=== PATIENT | male | born 1980 | race Caucasian/White ===

== ENCOUNTER 2019-07-18 22:42 | Emergency (ER) | payer SELFPAY ==
[~2019-07-18] VITALS: Ht 167.6 cm; Wt 77.0 kg
[2019-07-18] MEDS ORDERED: SODIUM CHLORIDE 0.9% 1,000 ML IV ONE (23:44)
[2019-07-18] MEDS ORDERED: LORAZEPAM 2MG/ML CPJ IV STA (23:44)
[2019-07-18 23:55] LABS: BASOPHILS % 0.5 % (0.0-2.0); EOSINOPHILS % 0.2 % (0.0-5.0); HEMATOCRIT. 44.4 % (42.0-52.0); HEMOGLOBIN. 15.3 g/dL (14.0-18.0); LYMPHOCYTES % 14.4 % (20.0-50.0); MEAN CORPUSCULAR HEMOGLOBIN 29.2 pg (28.0-32.0); MEAN CORPUSCULAR VOLUME 84.7 fL (80.0-94.0); MEAN PLATELET VOLUME 8.8 fl (7.4-10.4); NEUTROPHILS % 73.9 % (40.0-76.0); PLATELET 258 x1000/uL (130-400); RED BLOOD CELL COUNT 5.24 mill/uL (4.7-6.1); RED CELL DISTRIBUTION WIDTH 13.2 % (11.6-14.6)
[2019-07-19 00:08] LABS: CHLORIDE 104 mEq/L (98-107)
[2019-07-19 00:12] LABS: ETHANOL BLOOD < 10 mg/dL
[2019-07-19] MEDS ORDERED: LORAZEPAM 2MG/ML CPJ IV ONE (01:45)
[2019-07-19] MEDS ORDERED: LORAZEPAM 2MG/ML CPJ IM ONE (02:00)
[2019-07-19 02:10] LABS: CLARITY URINE CLEAR (CLEAR); COLOR URINE YELLOW (YELLOW); KETONES URINE 2+ (NEGATIVE); LEUKOCYTE ESTERASE URINE NEGATIVE (NEGATIVE); NITRITE URINE NEGATIVE (NEGATIVE); OCCULT BLOOD URINE NEGATIVE (NEGATIVE); PROTEIN URINE TRACE (NEGATIVE); SPECIFIC GRAVITY URINE 1.024 (1.005-1.030)
[2019-07-19 02:15] LABS: *AMPHETAMINES SCREEN URINE PRESUMTIVE POSITIVE (NEGATIVE); *BARBITURATES SCREEN URINE NEGATIVE (NEGATIVE)
[2019-07-19 02:16] LABS: *BENZODIAZEPINES SCREEN URINE NEGATIVE (NEGATIVE); *COCAINE SCREEN URINE NEGATIVE (NEGATIVE); CANNABINOID URINE SCREEN NEGATIVE (NEGATIVE); METHADONE URINE SCREEN NEGATIVE (NEGATIVE); OPIATES URINE SCREEN NEGATIVE (NEGATIVE); PHENCYCLIDINE URINE SCREEN NEGATIVE (NEGATIVE)
[2019-07-19] MEDS ORDERED: HALOPERIDOL LACTATE 5MG/ML VIAL IM ONE (02:30)
[2019-07-19 12:35] VITALS: BP 119/68
== END 2019-07-19 12:45 | disposition home or self-care (01) ==
LOC: ER 22:42
DX: F29 Unspecified psychosis not due to a substance or known physiological condition (principal); F19.10 Other psychoactive substance abuse, uncomplicated; F17.200 Nicotine dependence, unspecified, uncomplicated; F15.10 Other stimulant abuse, uncomplicated; F20.9 Schizophrenia, unspecified
CPT/HCPCS: 36415; 80053; 80305; 80320; 81003; 85025; 96372; 96374; 99284; 99406; J1630; J2060; J7030; G0480